=== PATIENT | female | born 1975 | race Caucasian/White ===

== ENCOUNTER 2017-11-09 10:33 | Emergency (ER) | payer SELFPAY | END 2017-11-09 11:45 | disposition left against medical advice (07) | LOC: ERS 10:33 | DX: Z53.21 Procedure and treatment not carried out due to patient leaving prior to being seen by health care provider (principal) ==

== ENCOUNTER 2018-06-02 21:16 | Emergency (ER) | payer SELFPAY | END 2018-06-02 21:56 | disposition left against medical advice (07) | LOC: ERS 21:16 | DX: Z53.21 Procedure and treatment not carried out due to patient leaving prior to being seen by health care provider (principal) ==

== ENCOUNTER 2018-06-02 22:16 | Emergency (ER) | payer SELFPAY | END 2018-06-02 23:20 | disposition home or self-care (01) | LOC: SCSER 22:16 | DX: J45.901 Unspecified asthma with (acute) exacerbation (principal); F17.210 Nicotine dependence, cigarettes, uncomplicated; Z71.6 Tobacco abuse counseling; Z79.899 Other long term (current) drug therapy | CPT/HCPCS: 99406; J7620 ==

== ENCOUNTER 2018-06-30 18:31 | Emergency (ER) | payer SELFPAY | END 2018-06-30 19:21 | disposition home or self-care (01) | LOC: SCSER 18:31 | DX: L02.01 Cutaneous abscess of face (principal); J45.909 Unspecified asthma, uncomplicated; F17.210 Nicotine dependence, cigarettes, uncomplicated; Z79.899 Other long term (current) drug therapy | CPT/HCPCS: 10060; 99406 ==

== ENCOUNTER 2019-02-05 23:29 | Emergency (ER) | payer OTHER, SELFPAY ==
--- NOTE | 2019-02-06 00:15 | RAD ---
RADIOGRAPH CHEST 2 VIEWS: DATE: 02/05/2019 HISTORY: 43-year-old female with cough and left-sided chest pain FINDINGS: There is no airspace density, pulmonary edema, pleural effusion, pneumothorax, or cardiomegaly. Diffu sely prominent interstitial markings. IMPRESSION: No definite acute cardiopulmonary findings.
== END 2019-02-06 00:15 | disposition home or self-care (01) ==
LOC: SCSER 23:29
DX: R07.89 Other chest pain (principal); F17.210 Nicotine dependence, cigarettes, uncomplicated; F41.9 Anxiety disorder, unspecified; E66.9 Obesity, unspecified; Z79.51 Long term (current) use of inhaled steroids
CPT/HCPCS: 71046; 93005

== ENCOUNTER 2019-03-13 18:48 | Emergency (ER) | payer OTHER ==
[2019-03-13] MEDS ORDERED: Dexamethasone 10 MG/ML VIAL ONE ×2 (19:31→19:32)
== END 2019-03-13 19:45 | disposition home or self-care (01) ==
LOC: SCSER 18:48
DX: J44.1 Chronic obstructive pulmonary disease with (acute) exacerbation (principal); F41.9 Anxiety disorder, unspecified; F17.210 Nicotine dependence, cigarettes, uncomplicated; Z79.51 Long term (current) use of inhaled steroids
CPT/HCPCS: 94640; 94760; J1100; J7620

== ENCOUNTER 2019-12-15 10:52 | Inpatient (IN) | payer OTHER, SELFPAY ==
[~2019-12-15 10:52] MED LIST: Rocuronium Bromide 10 MG/ML (10ML VIAL) ONE
[2019-12-15] MEDS ORDERED: cefTRIAXone\\ROCEPHIN 2 GM VIAL ONE (11:52)
[2019-12-15] MEDS ORDERED: Dexamethasone 10 MG/ML VIAL ONE (11:52)
[2019-12-15 12:05] LABS: ALT (SGPT) 52 U/L (8-55); AST (SGOT) 125 U/L (5-34); Albumin 1.5 g/dL (3.5-5.0); Alkaline Phosphatase 142 U/L (40-110); Anion Gap 23 mmol/L (10-20); BUN (Urea Nitrogen) 28 mg/dL (7.0-18.7); Calc. Creatinine Clearance 0 mL/min (70-130); Carbon Dioxide 11 mmol/L (22-29); Chloride 104 mmol/L (98-107); Estimated GFR-MDRD 61; Globulin 5.8 g/dL (2.4-3.5); Potassium 3.6 mmol/L (3.5-5.1); Protein, Total 7.3 g/dL (6.0-8.3); Sodium 134 mmol/L (136-145)
[2019-12-15 12:10] LABS: Glucose 33 mg/dL (70-105)
[2019-12-15 12:11] LABS: Band 42 % (5-11); Bite Cells SLIGHT = 2-5 cells (100X) (0-1/hpf); Burr Cells MODERATE= 6-15 cells (100X) (0-1/hpf); Hemoglobin 9.5 g/dL (12.0-16.0); Lymphocytes 6 % (21-51); MDiff Complete? YES; Mean Corpuscular HGB CONC 30.3 g/dL (32.0-36.0); Mean Corpuscular Hemoglobin 33.4 pg (27.0-31.0); Mean Platelet Volume 10.8 fL (7.4-10.4); Metamyelocyte 2 % (0-0); Monocytes 5 % (0-10); Neutrophil 45 % (42-75); Platelet Count 78 thou/uL (130-400); Platelet Morphology Comment Appears Decreased; RBC Distribution Width 18.8 % (11.5-14.5); Red Blood Cell (RBC) Count 2.85 mill/uL (4.20-5.40); Reflex for Review?? YES; Rouleaux Formation SLIGHT = 1-5 cells (100X) (None Seen); Schistocytes SLIGHT = 2-5 cells (100X) (0-1/hpf); White Blood Cell (WBC) Count 14.4 thou/uL (4.8-10.8)
[2019-12-15 12:18] LABS: Bilirubin 1+ (Negative); Blood, Urine 2+ (Negative); Clarity Turbid (Clear); Glucose, Urine (Dipstick) Normal (Negative); Leukocyte 25 Leu/uL (Negative); Nitrite Negative (Negative); Protein, Urine (Dipstick) 30 mg/dL (Neg-Trace); RBC/HPF 21-50 HPF (0-3); Squamous Epithelial 0-3 HPF (0-3)
[2019-12-15 12:29] LABS: Bacteria/HPF 2+ HPF (None Seen)
--- NOTE | 2019-12-15 13:28 | RAD ---
Chest AP view INDICATION: History of lethargy and dehydration COMPARISON: February 05, 2019 FINDINGS: Lungs: The lungs are clear Cardiac silhouette: Stable mild cardiomegaly Pulmonary vasculature: Normal Pleural spaces: No pleural effusion or pneumothorax is demonstrated. Upper abdomen: No abnormality seen. Osseous structures: No acute osseous abnormality. Additional findings: None. IMPRESSION: No acute cardiopulmonary abnormality.
[2019-12-15 13:58] LABS: INR-International Normal Ratio 3.1; Prothrombin Time 31.9 SEC (12.0-14.7)
[2019-12-15 13:59] LABS: PTT 72.8 SEC (22.9-36.1)
[2019-12-15 14:00] LABS: Hemoglobin 8.1 g/dL (12.0-16.0); Mean Corpuscular HGB CONC 30.4 g/dL (32.0-36.0); Mean Corpuscular Hemoglobin 33.6 pg (27.0-31.0); Mean Platelet Volume 11.9 fL (7.4-10.4); Platelet Count 63 thou/uL (130-400); RBC Distribution Width 18.5 % (11.5-14.5); Red Blood Cell (RBC) Count 2.42 mill/uL (4.20-5.40); White Blood Cell (WBC) Count 9.9 thou/uL (4.8-10.8)
--- NOTE | 2019-12-15 14:41 | RAD ---
XR Shoulder Rt 3 View STANDARD HISTORY: Right shoulder pain FINDINGS: No fracture, dislocation or bony destruction is identified. Minimal degenerative changes are seen in the acromioclavicular joint.
[2019-12-15] MEDS ORDERED: CCU Electrolyte Replacement 1 EACH IVPB ONE (14:45)
[2019-12-15] MEDS ORDERED: Potassium Phosphate 15 MMOL in Sodium Chloride 0.9% 250 ML 250 ML IV PRN (14:51)
[2019-12-15] MEDS ORDERED: Potassium Phosphate 9 MMOL in Sodium Chloride 0.9% 100 ML IVPB PRN (14:51)
[2019-12-15] MEDS ORDERED: CCU ELECTROLYTE REPLACEMENT PROTOCOL FS PRN (14:51)
[2019-12-15] MEDS ORDERED: Potassium Chloride 40 MEQ in Premix Bag 1 BAG IVPB PRN (14:51)
[2019-12-15] MEDS ORDERED: Magnesium 2 GM/50 ML 2 GM in Premix Bag 1 BAG IVPB PRN (14:51)
[2019-12-15] MEDS ORDERED: Potassium Phosphate 12 MMOL in Sodium Chloride 0.9% 250 ML 250 ML IV PRN (14:51)
[2019-12-15] MEDS ORDERED: PHOS-NAK 1 PKT PACK PO PRN ×2 (14:51)
[2019-12-15] MEDS ORDERED: Potassium Chloride 40 MEQ in Sodium Chloride 0.9% 250 ML 250 ML IVPB PRN (14:51)
[2019-12-15] MEDS ORDERED: Potassium Chloride 20 MEQ TAB PO PRN (14:51)
[2019-12-15] MEDS ORDERED: Magnesium Oxide 400 MG TAB PO PRN ×2 (14:51)
[2019-12-15 14:53] LABS: Anisocytosis SLIGHT = 6-15 cells (100X) (0-5/hpf); Band 29 % (5-11); Burr Cells SLIGHT = 2-5 cells (100X) (0-1/hpf); Lymphocytes 5 % (21-51); MDiff Complete? YES; Macrocytosis SLIGHT = 6-15 cells (100X) (0-5/hpf); Metamyelocyte 1 % (0-0); Monocytes 2 % (0-10); Myelocyte 2 % (0-0); Neutrophil 61 % (42-75); Nucleated RBC 1 % (0); Ovalocytes SLIGHT = 2-5 cells (100X) (0-1/hpf); Platelet Morphology Comment Appears Decreased; Polychromasia SLIGHT = 2-3 cells (100X) (0-2/hpf); Rouleaux Formation SLIGHT = 1-5 cells (100X) (None Seen); Schistocytes SLIGHT = 2-5 cells (100X) (0-1/hpf); Toxic Granulation SLIGHT; Vacuoles SLIGHT
[2019-12-15] MEDS ORDERED: Iopamidol-370 76% 500 ML 1 ML ONE (14:55)
[2019-12-15] MEDS ORDERED: Dextrose 5% in Water 1,000 ML IV PRN (15:04)
[2019-12-15 15:15] LABS: Analyzer IN Cardio ER; Base Excess (BEa) -11.3 mEq/L (-2.0 to +3.0); Calcium, Ionized 1.12 mmol/L (1.12-1.30); Carboxyhemoglobin (COHb) 0.6 gm% (0.0-3.0); Hemoglobin (Hb) 9.4 g/dL (12.0-16.0); O2 Tension (PaO2) 76.9 mmHg (80.0-100.0); Potassium - ABG Lab 3.59 mmol/L (3.70-5.30); pH, Arterial 7.34 (7.35-7.45)
[2019-12-15] MEDS ORDERED: DEXTROSE 5% IV SCH (15:15)
[2019-12-15] MEDS ORDERED: WATER IV SCH (15:15)
[2019-12-15] MEDS ORDERED: Sodium Chloride 0.45% 1,000 ML IV SCH (15:15)
[2019-12-15] MEDS ORDERED: ACETYLCYSTEINE IV SCH (15:15)
[2019-12-15 15:16] LABS: CO2 Tension 24.4 mmHg (35.0-45.0); Puncture Site RRA
[2019-12-15 15:35] LABS: Lactic Acid 12.4 mmol/L (0.5-2.2)
[2019-12-15 15:41] LABS: Acetaminophen Less than 6.0 mcg/mL (10.0-30.0); Alcohol Less than 10 mg/dL (Less than 10); Salicylate Less than 8.0 mg/dL (15.0-30.0)
[2019-12-15 15:55] LABS: Vitamin B12 1840 pg/mL (211-911)
[2019-12-15 16:02] LABS: HBSAg Index 0.26 S/CO (0-0.99); Hep A IgM AB Non-Reactive (NonReactive); Hep A IgM S/CO 0.15 S/CO (0-0.79); Hep B Surf Ag Non-Reactive S/CO (NonReactive); Hep C IgG Ab Non-Reactive (NonReactive); Hep C Index 0.17 S/CO (0-0.79); Hepatitis B Core IgM Abs Non-Reactive (NonReactive)
--- NOTE | 2019-12-15 16:06 | CT ---
CT ABDOMEN AND PELVIS WITH IV CONTRAST: Date: 12/15/2019 HISTORY: Dehydration, UTI, ascites. FINDINGS: There are no previous exams for comparison. The lung bases are unremarkable. The patient is post cholecystectomy. There is a moderate amount of f ree fluid in the abdomen and pelvis consistent with ascites. The spleen is enlarged, measuring 16.6 c m. No enhancing hepatic mass or abnormal biliary ductal dilatation is seen. The pancreas, adrenal gla nds, and left kidney are normal. There is a tiny, nonobstructing calculus in the superior pole of the right kidney. No free air or lymphadenopathy is seen. The small bowel loops are not abnormally dilated. A normal ap pearing appendix is seen. There is sigmoid diverticulosis. Vascular calcifications are present withou t evidence of aneurysmal dilatation of the abdominal aorta. There are degenerative changes in the spi ne. There is a 13.0 mm cyst in the upper aspect of the right kidney. No portosplenic thrombosis is seen. There are varices in the left hemiabdomen. Uterus and ovaries are present with a 2.6 cm right ovarian cyst. There is mild irregularity to the surface of the liver consistent with cirrhosis. IMPRESSION: 1. Cirrhosis of the liver. 2. Splenomegaly. 3. Ascites. 4. Portal hypertension. 5. Sigmoid diverticulosis. 6. Nonobstructing tiny right renal calculus. 7. 13.0 mm right renal cyst. POS: [facility]
[2019-12-15] MEDS ORDERED: Sodium Bicarbonate 150 MEQ in Dextrose 5% in Water 1,000 ML IV SCH (16:45)
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
[2019-12-15] MEDS ORDERED: ALPRAZolam 0.25 MG TAB PO PRN (17:26)
[2019-12-15] MEDS: Piperacillin/Tazobactam 3.375 GM in Sodium Chloride 0.9% 100 ML IVPB SCH ×2 (17:51→20:28)
[2019-12-15] MEDS: Albumin 25% 25 GM/100 ML BOT IVPB SCH (17:55)
[2019-12-15] MEDS: Morphine 2 MG/ML SYRINGE SLOW IVP PRN (17:55)
[2019-12-15] MEDS ORDERED: Ondansetron PF 4 MG/2 ML Vial IVP PRN (18:17)
[2019-12-15] MEDS ORDERED: diphenhydrAMINE 50 MG/ML VIAL IVP PRN (18:17)
[2019-12-15] MEDS ORDERED: diphenhydrAMINE 25 MG CAP PO PRN (18:17)
[2019-12-15] MEDS ORDERED: Ondansetron ODT 4 MG TAB PO PRN (18:17)
[2019-12-15] MEDS ORDERED: Bacteriostatic Water 30 ML VIAL FS PRN (18:21)
[2019-12-15] MEDS ORDERED: methylPREDNISolone Sod Succ/PF 125 MG/2 ML VIAL IVP SCH (18:30)
[2019-12-15] MEDS ORDERED: Acetylcysteine 20% (200mg/mL) 3,800 MG in Dextrose 5% in Water 500 ML IVPB SCH (18:30)
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
[2019-12-15 21:55] LABS: Actual Bicarbonate (HCO3a) 18.1 mEq/L (22-28); Base Excess (BEa) -6.9 mEq/L (-2.0 to +3.0); CO2 Tension 33.8 mmHg (35.0-45.0); Calcium, Ionized 1.13 mmol/L (1.12-1.30); Carboxyhemoglobin (COHb) 1.9 gm% (0.0-3.0); Hemoglobin (Hb) 8.7 g/dL (12.0-16.0); Potassium - ABG Lab 3.64 mmol/L (3.70-5.30); pH, Arterial 7.35 (7.35-7.45)
[2019-12-15] MEDS ORDERED: Sodium Bicarb 50 MEQ/50 ML VIAL IVP SCH (22:15)
[2019-12-15] MEDS ORDERED: Furosemide 40 MG/4 ML VIAL SLOW IVP SCH (22:15)
[2019-12-15] MEDS ORDERED: Acetylcysteine 20% (200mg/mL) 7,600 MG in Dextrose 5% in Water 1,000 ML IV SCH (23:00)
[2019-12-16] MEDS: Albumin 25% 25 GM/100 ML BOT IVPB SCH ×4 (00:02→18:45)
[2019-12-16 00:46] LABS: O2 Tension (PaO2) 48.6 mmHg (80.0-100.0)
[2019-12-16 00:47] LABS: Puncture Site LRA
[2019-12-16 01:04] LABS: Prothrombin Time 39.6 SEC (12.0-14.7)
[2019-12-16 01:06] LABS: Amphetamine Not Detected (NotDetected); Barbiturates Screen Not Detected (NotDetected); Benzodiazepine Screen Not Detected (NotDetected); Cocaine Metabolite Screen Not Detected (NotDetected); Medtox Control Line Valid? VALID (VALID); Medtox Reader # READER 1; Methadone Not Detected (NotDetected); Methamphetamine Not Detected (NotDetected); Opiate Screen Not Detected (NotDetected); Oxycodone Screen Not Detected (NotDetected); Phencyclidine (PCP) Not Detected (NotDetected); THC/Cannabinoid Screen Not Detected (NotDetected); Tricyclic Screen Not Detected (NotDetected)
[2019-12-16 01:08] LABS: Band 30 % (5-11); Lymphocytes 11 % (21-51); MDiff Complete? YES; Mean Corpuscular HGB CONC 31.3 g/dL (32.0-36.0); Mean Corpuscular Hemoglobin 34.2 pg (27.0-31.0); Mean Platelet Volume 11.5 fL (7.4-10.4); Metamyelocyte 2 % (0-0); Monocytes 2 % (0-10); Neutrophil 55 % (42-75); Platelet Count 80 thou/uL (130-400); Platelet Morphology Comment Appears Decreased; RBC Distribution Width 19.1 % (11.5-14.5); Red Blood Cell (RBC) Count 2.63 mill/uL (4.20-5.40)
[2019-12-16 01:09] LABS: INR-International Normal Ratio 4.1
[2019-12-16 01:10] LABS: Lactic Acid 7.8 mmol/L (0.5-2.2)
[2019-12-16 01:34] LABS: ALT (SGPT) 46 U/L (8-55); AST (SGOT) 121 U/L (5-34); Albumin 1.8 g/dL (3.5-5.0); Alkaline Phosphatase 89 U/L (40-110); Anion Gap 19 mmol/L (10-20); BUN (Urea Nitrogen) 27 mg/dL (7.0-18.7); Bilirubin, Total 5.7 mg/dL (0.2-1.2); Calc. Creatinine Clearance 111 mL/min (70-130); Calcium 7.9 mg/dL (7.8-10.44); Carbon Dioxide 17 mmol/L (22-29); Chloride 101 mmol/L (98-107); Estimated GFR-MDRD 70; Globulin 4.9 g/dL (2.4-3.5); Glucose 100 mg/dL (70-105); Iron 55 ug/dL (50-170); Magnesium 1.7 mg/dL (1.6-2.6); Potassium 3.7 mmol/L (3.5-5.1); Protein, Total 6.7 g/dL (6.0-8.3); Sodium 133 mmol/L (136-145)
[2019-12-16] MEDS: Piperacillin/Tazobactam 3.375 GM in Sodium Chloride 0.9% 100 ML IVPB SCH ×3 (02:34→15:22)
[2019-12-16] MEDS: Morphine 2 MG/ML SYRINGE SLOW IVP PRN (02:34)
--- NOTE | 2019-12-16 02:53 | HP ---
CHIEF COMPLAINT: Right-sided shoulder pain, generalized weakness. HISTORY OF PRESENT ILLNESS: The patient is a 44-year-old female, who presents to the hospital with complaints of right-sided shoulder pain going on since Sunday. The patient initially went to her primary care doctor on Sunday and then followed by a chiropractor the same day. She was prescribed some anti-inflammatories, which did not help her pain. At this time, she went into where she was admitted for pain control. However, the patient stated that she was also diagnosed with the UTI and the patient left against medical advice there since she did not like the care that she was provided. The patient came back to the hospital with complaints of worsening right-sided shoulder pain and generalized weakness. The patient states that for the past three weeks, she has been taking 15 mL of Tylenol twice a day for her left hip pain. She states that she has a history of sciatica and has been having pain on her left hip area. Since Sunday, she has been on some prednisone, a little bit of naproxen, and also on promethazine for a little bit of nausea. She denies any abdominal pain, any diarrhea. She states that she has been drinking enough fluids. She denies any fevers or chills. She denies any sick contacts. PAST MEDICAL HISTORY: She has a history of asthma, only uses an inhaler. ALLERGIES: SHE HAS ALLERGIES TO CODEINE AND NSAIDS AND SULFAMETHOXAZOLE AND TRIMETHOPRIM. MEDICATIONS: Only ProAir as needed. PAST SURGICAL HISTORY: She has had a tubal ligation, a cholecystectomy, and a . FAMILY HISTORY: Her mother had polio. Her father in a work related accident. SOCIAL HISTORY: She smokes about half a pack a day. Denies any alcohol use or drug use. She is a full code. REVIEW OF SYSTEMS: All negative except for the ones mentioned above in the HPI. PHYSICAL EXAMINATION: VITAL SIGNS: At this time, temperature of 98.8, blood pressure 123/74, oxygen saturation 97% on 2 L, and heart rate is 129. GENERAL: She is awake, alert, and oriented x3. Appears ill. HEENT: She has poor dentition. She has some erythema around her left upper molar. CV: S1 and S2. She is tachycardic. LUNGS: Mild rhonchi heard all over. ABDOMEN: Soft. Bowel sounds are present x2. She has no pain upon palpation. EXTREMITIES: She has 1 to 2+ lower extremity edema. Pedal pulses are present x2. NEUROVASCULAR: No focal deficits noted. SKIN: No cuts, lesions, or bruises noted. LABORATORY RESULTS: As of the following; WBCs of 14.4, hemoglobin of 9.5, hematocrit of 31.4, platelets of 78. Her bands were 42. Chemistry; sodium of 134, potassium of 3.6, BUN of 28, creatinine 0.9. Her glucose was 33. Her lactic acid was 16. Her LDH was 403. Her bilirubin was 6. Her AST was 125. Her alkaline phosphatase was 142. Her INR was 3.1. Her PT was 31 and PTT was 72.8. She did have a CT of abdomen and pelvis and a shoulder x-ray. The CT of abdomen and pelvis indicated cirrhosis of the liver, splenomegaly, ascites, portal hypertension, sigmoid diverticulosis, and nonobstructing tiny right renal calculi. She also had a shoulder x-ray, which indicated no fracture, dislocations, just degenerative changes. ASSESSMENT AND PLAN: The patient is a very pleasant 44-year-old female, who presents to the hospital with complaints of generalized weakness and right shoulder pain. 1. Acute liver failure, unknown etiology at this time. We will check liver hepatitis profile. We will check autoimmune profile. We will also consult GI. She has been taking Tylenol. We will check Tylenol levels and also put her on N-acetylcysteine protocol. We will start her on some gentle hydration and continue to monitor her. 2. Gram-positive bacteremia. We received cultures. Both blood cultures were positive for gram positive bacteremia. We will put her on broad-spectrum antibiotics. We will continue to monitor. 3. Lactic acidosis, most likely secondary to possible sepsis versus liver failure. 4. Thrombocytopenia, again is most likely secondary to her liver failure. We will continue to monitor. 5. Anemia. Again, this could be most likely secondary to underlying liver failure. We will check a stool for occult blood for her. 6. Hypoglycemia. This is most likely secondary to possible liver failure. The patient has been eating but not as much per the family. 7. Deep venous thrombosis prophylaxis. We will put the patient on some SCDs. Job ID: [id number]
[2019-12-16] MEDS ORDERED: Magnesium 2 GM/50 ML 2 GM in Premix Bag 1 BAG IVPB SCH (03:30)
[2019-12-16] MEDS: Vancomycin HCl 1.25 GM in Sodium Chloride 0.9% 250 ML 250 ML IVPB SCH ×2 (04:23→16:28)
[2019-12-16 04:32] LABS: Actual Bicarbonate (HCO3a) 21.2 mEq/L (22-28); Base Excess (BEa) -6.3 mEq/L (-2.0 to +3.0); CO2 Tension 51.2 mmHg (35.0-45.0); Calcium, Ionized 1.15 mmol/L (1.12-1.30); Carboxyhemoglobin (COHb) 1.3 gm% (0.0-3.0); Hemoglobin (Hb) 10.3 g/dL (12.0-16.0); Potassium - ABG Lab 3.78 mmol/L (3.70-5.30)
[2019-12-16 04:35] LABS: Iron Binding Capacity, Total 38 mcg/dL (265-497)
[2019-12-16] MEDS ORDERED: Propofol 1,000 MG/100 ML VIAL IV ONE (04:42)
[2019-12-16] MEDS ORDERED: Midazolam HCl 2 mg/2 ml Vial ONE (04:55)
[2019-12-16] MEDS ORDERED: Rocuronium Bromide 10 MG/ML (10ML VIAL) IVP SCH (05:00)
[2019-12-16] MEDS ORDERED: Vecuronium 10 MG VIAL ONE (05:00)
[2019-12-16] MEDS ORDERED: Sodium Bicarb 50 MEQ/50 ML VIAL ONE ×3 (05:27→08:00)
[2019-12-16] MEDS ORDERED: EPINEPHrine 4 MG in Dextrose 5% in Water 250 ML IV SCH (05:30)
[2019-12-16 05:44] LABS: Actual Bicarbonate (HCO3a) 26.3 mEq/L (22-28); CO2 Tension 59.6 mmHg (35.0-45.0); Calcium, Ionized 1.03 mmol/L (1.12-1.30); Carboxyhemoglobin (COHb) 1.9 gm% (0.0-3.0); Hemoglobin (Hb) 7.8 g/dL (12.0-16.0); Potassium - ABG Lab 3.34 mmol/L (3.70-5.30); pH, Arterial 7.26 (7.35-7.45)
[2019-12-16] MEDS ORDERED: Vecuronium 10 MG VIAL IV PRN (05:50)
[2019-12-16] MEDS ORDERED: Ventilator Sedation Protocol 1 EACH FS ONE (05:50)
[2019-12-16] MEDS ORDERED: Sodium Bicarb 50 MEQ/50 ML VIAL IVP SCH ×2 (05:50→08:00)
[2019-12-16 05:51] LABS: Puncture Site LRA; pH, Arterial 7.23 (7.35-7.45)
[2019-12-16 05:52] LABS: O2 Tension (PaO2) 52.8 mmHg (80.0-100.0)
[2019-12-16 05:53] LABS: Puncture Site LRA
[2019-12-16] MEDS ORDERED: Propofol BOLUS 1,000 MG/100 ML VIAL IV PRN (06:02)
[2019-12-16] MEDS ORDERED: Propofol 1,000 MG/100 ML VIAL IV PRN (06:02)
[2019-12-16] MEDS ORDERED: Fentanyl BOLUS 250 ML IVPB PRN (06:02)
[2019-12-16] MEDS ORDERED: DISCONTINUE PREVIOUS NARCOTIC PAIN MEDICATIONS AND BENZODIAZEPINES FS SCH (06:02)
[2019-12-16] MEDS ORDERED: Lorazepam 2 MG/ML VIAL SLOW IVP PRN (06:02)
[2019-12-16] MEDS ORDERED: Morphine 2 MG/ML SYRINGE SLOW IVP PRN ×2 (06:02→18:58)
[2019-12-16] MEDS ORDERED: fentaNYL Citrate/PF 2,000 MCG in Sodium Chloride 0.9% 60 ML IV SCH (06:02)
[2019-12-16] MEDS ORDERED: Norepinephrine 8 MG/0.9% NS 0 ML ONE (06:18)
[2019-12-16] MEDS ORDERED: Rocuronium Bromide 50 MG/5 ML VIAL IVP SCH (06:30)
[2019-12-16 06:37] LABS: Base Excess (BEa) -2.3 mEq/L (-2.0 to +3.0); CO2 Tension 57.2 mmHg (35.0-45.0); Calcium, Ionized 1.02 mmol/L (1.12-1.30); Carboxyhemoglobin (COHb) 1.8 gm% (0.0-3.0); Hemoglobin (Hb) 8.6 g/dL (12.0-16.0); Potassium - ABG Lab 3.37 mmol/L (3.70-5.30); pH, Arterial 7.26 (7.35-7.45)
[2019-12-16 06:44] LABS: O2 Tension (PaO2) 47.8 mmHg (80.0-100.0)
[2019-12-16 06:46] LABS: Puncture Site LBA
--- NOTE | 2019-12-16 07:48 | RAD ---
CHEST 1 VIEW PORTABLE: HISTORY: Intubation, respiratory insufficiency, NG tube placement. FINDINGS: NG tube and endotracheal tubes have been placed in satisfactory location. There are extensive bilate ral interstitial and confluent alveolar opacities changes noted bilaterally throughout both lungs dev eloping since the prior 12/15/2019 study. Heart size is within normal limits. Slight costophrenic ang le blunting. IMPRESSION: Very severe confluent alveolar and interstitial opacity changes throughout both lungs developing sinc e the prior study. Tubes in place. Continue short-term followup. POS: [facility]
[2019-12-16] MEDS ORDERED: Sodium Chloride 0.9% (PF) 10 ML VIAL FS PRN (07:50)
[2019-12-16 07:52] LABS: Actual Bicarbonate (HCO3a) 21.1 mEq/L (22-28); Base Excess (BEa) -6.3 mEq/L (-2.0 to +3.0); CO2 Tension 51.6 mmHg (35.0-45.0); Calcium, Ionized 1.02 mmol/L (1.12-1.30); Carboxyhemoglobin (COHb) 1.6 gm% (0.0-3.0); Hemoglobin (Hb) 9.7 g/dL (12.0-16.0)
[2019-12-16 07:54] LABS: O2 Tension (PaO2) 46.3 mmHg (80.0-100.0); Puncture Site LBA; pH, Arterial 7.23 (7.35-7.45)
--- NOTE | 2019-12-16 08:59 | PRG ---
DATE OF SERVICE: 12/16/2019 TIME: From 4:30 to 6 a.m. (90 minutes), and then from 7 to 7:30, additional 30 minutes. SUBJECTIVE: Ms. Brandt is a 44-year-old female, who was admitted last night with sepsis and liver failure. As the night progressed, she became more hypoxemic. She was placed on BiPAP and given diuretics with no improvement. At 4:30, I elected to intubate her. This was done successfully and quickly. At approximately 10 minutes to 5, she was noted to have pulseless electrical activity. She had brief chest compressions, responded to hyperventilation and epinephrine as well as a volume infusion. She is now on an epinephrine drip. She has had chemically paralyzed. She is unresponsive when I intubated her. OBJECTIVE: LUNGS: Remarkable for coarse breath sounds. HEART: Regular rhythm. ABDOMEN: Distended. EXTREMITIES: Without asymmetry nor a gastric tube was placed. She has blood in her orogastric tube. LABORATORY DATA AND IMAGING STUDIES: White count 16, hemoglobin 9, platelets 80. BUN 27, creatinine 0.87. PH of 7.23, CO2 of 51, pO2 of 46. Immediately prior to intubation, she was 7.23, CO2 of 51, pO2 of 51. Post-intubation and post-code, she is 7.26, CO2 of 59, and pO2 of 52. Her peak airway pressure is close to 50 with a plateau of 40 to give her a tidal volume of 450. On , bilevel ventilation, her exhaled tidal volumes were only 360 mL. Chest radiograph shows diffuse alveolar infiltrates. ASSESSMENT AND PLAN: I met with the and met with the son or both. The son is an adult. There are also small children involved. I explained that she very likely will not survive this. I have explained that another round of chest compressions will add little given that she is being supported with bicarb boluses and an epinephrine drip. They will have a discussion, but they are willing to consider do not resuscitate orders. We will continue our current aggressive care, but she continues to spiral downward. Her chances of survival are close to zero. I explained to the family that the acute liver transplantation is not an option. Critical care time is 90 minutes as documented above and then an additional 30 minutes this morning. This is independent of the intubation fiberoptically. Job ID: [id number]
[2019-12-16] MEDS ORDERED: Phytonadione 10 MG/ML AMP PO SCH (09:00)
[2019-12-16] MEDS ORDERED: FLU VACC QS2019-20(6MOS UP)/PF 60 MCG/0.5 ML SYRINGE IM ONE (09:00)
[2019-12-16] MEDS ORDERED: Pantoprazole 40 MG VIAL IVP SCH (09:00)
--- NOTE | 2019-12-16 09:29 | PDOC.PALCO ---
Palliative Care Consult - Consult Details Requesting Physician: Dr Packer Reason for Consult: goals of care, advance directives assistance, family support Family Members Present: Patient three Children - Pertinent HPI 44 year old female who present to the emergency room with complaints of right sided shoulder pain, onset 12/12/2019. Initially seen by primary care physician and chiropractor with no relief. Review of records state she also went to another emergency room where she was diagnosed with a UTI but left AMA secondary to not satisfied with care. Pain to right shoulder increased and she present to the emergency room at [facility]. On presentation to the emergency room she was able to provide history. Evaluation identified acute liver failure , gram positive bacteremia, anemia, thrombocytopenia and was admitted for higher level of care to CCU. Decline and required intubation for maintenance of airway. - Pertinent PMH Asthma - Social History Smoking Status: Current every day smoker Smoking: less than 1 pack/day Alcohol Use: none Drug Use History: none Living Situation: - Medications MAR Reviewed: Yes - Allergies Allergies/Adverse Reactions: Allergies Allergy/AdvReac Type Severity Reaction Status Date / Time codeine Allergy Verified 12/15/19 19:33 NSAIDS (Non-Steroidal Allergy Verified 12/15/19 19:33 Anti-Inflamma sulfamethoxazole Allergy Verified 12/15/19 19:33 [From Bactrim] trimethoprim [From Bactrim] Allergy Verified 12/15/19 19:33 - Subjective Intubated, encephalopathic - ROS Non Response: due to endotracheal tube, due to mental status - Objective Vital Signs: Vital Signs - Most Recent Temp Pulse Resp BP Pulse Ox 98.0 F 137 H 30 H 114/52 L 71 L 12/16/19 04:00 12/16/19 06:58 12/16/19 08:00 12/16/19 06:58 12/16/19 06:49 Palliative Performance Scale: 10 - Physical Exam Constitutional: encephalitic, ill appearing HEENT: moist MMs, scleral icterus Deviation from normal: mechanical ventilation Deviation from normal: tachycardia Deviation from normal: distended Genitourinary: guillen catheter Musculoskeletal: edema present Neurology: no focal deficits Skin: bruising Deviation from normal: icteric Deviation from normal: encephalopathic - Problem List (1) Palliative care encounter Code(s): Z51.5 - ENCOUNTER FOR PALLIATIVE CARE Status: Acute (2) Respiratory failure requiring intubation Code(s): J96.90 - RESPIRATORY FAILURE, UNSP, UNSP W HYPOXIA OR HYPERCAPNIA Status: Acute (3) Liver failure Status: Acute (4) Acute encephalopathy Code(s): G93.40 - ENCEPHALOPATHY, UNSPECIFIED Status: Acute - Plan/Recommendations Plan: Dr Packer and Shantel Corrales RNmulcher operator met with family to discuss multiple morbidities and poor chance of meaningful recovery given acute health crisis. Continued family support offered to children Juan David, and the 15 year old daughter. There is also an 11 year old son that is present in the lobby. Will continue to support family through therapeutic listening, emotional support, and establish goals of care as needed. [50] minutes spent on this encounter with >50% of the time in counseling and coordination of care. Thank you for this very appropriate consult.
[2019-12-16 09:41] LABS: Lactic Acid 15.6 mmol/L (0.5-2.2)
--- NOTE | 2019-12-16 12:05 | OP ---
DATE OF PROCEDURE: 12/16/2019 PROCEDURE PERFORMED: Fiberoptic intubation. The patient was unresponsive. A bite block was placed in her mouth. She did cooperate for placement of bite block but she was somnolent. Blood pressure is 120 range at this time. Heart rate was 120 to 130. DESCRIPTION OF PROCEDURE: Her upper airway was inspected and noted for bilirubin stained oral secretions. The bronchoscope was passed through her glottis into her trachea easily. Endotracheal tube was secured above the main you. Copious amounts of clear and yellow stained tracheobronchial secretions were seen, no purulent exudates were seen. I suspect that this is all lead to respiratory distress syndrome associated with gram-positive sepsis associated with acute on chronic hepatic decompensation. PROCEDURE PERFORMED: Central line placement. DESCRIPTION OF PROCEDURE: Right groin was prepped with chlorhexidine and Betadine. The right femoral vein was cannulated with an introducer needle followed by a J-wire. The J-wire bent at the tip of the needle and I was unable to advance a vein dilator, so the whole apparatus was withdrawn. A second kit was obtained. Introducer needle was inserted through the same puncture wound into the vein. A wire was passed that time without difficulty. A vein dilator was inserted. Then a triple-lumen catheter was inserted after withdrawal of the introducer and sewn in place x2. Good blood return was obtained from all three ports. Pressors were connected to this catheter. Sterile dressing was applied. A saldana bag compression was applied to this area given the oozing secondary to her coagulopathy. Job ID: [id number]
[2019-12-16] MEDS: Dextrose 50% Abboject 50 ML SYRINGE SLOW IVP PRN ×4 (12:09→18:00)
[2019-12-16 12:25] VITALS: BMI 38.4
--- NOTE | 2019-12-16 12:55 | PRG ---
DATE OF SERVICE: 12/16/2019 SUBJECTIVE: Ms. Brandt had an eventful night. Unfortunately, she developed increasing respiratory distress and had to be intubated early this morning. Following this, she had a short run of pulseless electrical activity and received chest compressions as well as epinephrine. She did regain pulses. Nasogastric tube was passed and is suctioning out to some fresh blood. There has been no report of blood from below. She has remained hypotensive and tachycardic, now on epinephrine as well as bicarb drips. She was made DNR status and Palliative Care consultation was obtained. OBJECTIVE: VITAL SIGNS: Temperature 98.4, pulse 135, blood pressure 75/50, 85% oxygen saturation on ventilator. GENERAL: Critically ill, sedated and intubated. ENT: Orogastric tube suctioning out some fresh blood. HEART: Regular, tachycardia. LUNGS: Bibasilar crackles. ABDOMEN: Mild distention. No withdrawal to palpation. EXTREMITIES: No peripheral edema. LABORATORY STUDIES: Hemoglobin is 9.0, WBC up to 16.0, platelets 80. INR up to 4.1. ABG shows continued acidosis worsening with pH of 7.23, pO2 only 46.3, pCO2 is 51.6. Sodium 133, potassium 3.7, BUN 27, creatinine 0.87, glucose 90. Lactic acid went down to 7.8, but increased back to 15.6. Calcium 7.9. Ferritin elevated, iron 55, TIBC 38. Total bilirubin is stable at 5.7, alkaline phosphatase 89, AST 121, ALT 46. Ammonia up 76, albumin 1.8. Urine toxicology screen is all negative. Viral hepatitis serologies are all nonreactive. Awaiting EDGARDO, ASMA, AMA, as well as ceruloplasmin. IMAGING STUDIES: Chest x-ray this morning shows diffuse severe confluent alveolar and interstitial opacities, all new since her initial imaging yesterday. Microbiology; her urine culture preliminary report shows it is growing out Staph aureus. Recalled that blood cultures from the outside hospital were growing gram-positive cocci. ASSESSMENT/PLAN: 1. Severe sepsis, with persistent hypotension. 2. Bilateral lung infiltrates and hypoxic respiratory failure, likely representing acute respiratory distress syndrome. 3. Pulseless electrical activity, status post code with chest compressions earlier this morning. Agree with Dr. Packer's assessment, prognosis is quite grave considering continued clinical deterioration with maximal supportive care. She is on broad-spectrum antibiotics, epinephrine, and bicarb drips, but with worsening lactic acidosis and continued hypoxia, now evidence of new lung infiltrates. 4. Upper gastrointestinal bleeding, with fresh blood coming from orogastric tube. Hemoglobin is stable. With this degree of coagulopathy, the bleeding we are seeing is not surprising. Continue to monitor H and H and transfuse as needed. Stress ulcer prophylaxis with IV PPI. She is getting 40 mg IV daily. No plan for any endoscopic investigation as this would not likely yield any clinical benefit, and would likely hasten her demise. 5. Cirrhosis, this was previously undiagnosed, but with her presenting thrombocytopenia, hypoalbuminemia, evidence of cirrhotic liver configuration and portal hypertension, on imaging, this has likely been underlying for some time. Etiology is unclear, but obviously with less hepatic reserve, this is contributing to the severity of her presentation. 6. Coagulopathy. This is worsening over the past day with INR up to 4.1. 7. The family has opted for continued aggressive care, though she has been made DNR status. Palliative Care Team continues to follow. I think particularly if we are not seeing clinical improvement over the next 24 hours, consideration of comfort measures would be appropriate. 8. Ascites. Her presenting CT did indeed show some [id number]-[id number] ascites. She is being treated aggressively with IV albumin and antibiotics already. I would not perform any paracentesis in this setting. Job ID: [id number] MTDD
[2019-12-16] MEDS ORDERED: methylPREDNISolone Sod Succ 40 MG VIAL IVP SCH (18:00)
[2019-12-16 18:13] VITALS: BP 70/47
[2019-12-16 19:57] VITALS: TEMP 99.2
--- NOTE | 2019-12-17 12:36 | DIS ---
DATE OF ADMISSION: 12/15/2019 DATE OF DISCHARGE: 12/16/2019 This is a discharge/ summary. Date of is 12/16/2019. SERVICE: Staff physician, hospitalist service. Attending is Rodney Perez MD. CONSULTATIONS: Dr. Packer of Pulmonology, Dr. Amezquita of Gastroenterology, Internal Medicine. PROCEDURES: Central line placement, intubation. HISTORY OF PRESENT ILLNESS: The patient was a 44-year-old female with past medical history of asthma who presented to the hospital with complaints of right-sided shoulder pain since Sunday. She initially went to her primary care doctor and chiropractor, and was prescribed anti-inflammatories, which did not help the pain. She went to [facility] and complained of abdominal discomfort day before admission. She requested Tylenol, but they were hesitant to give her Tylenol because of some kind of liver abnormalities, so she signed out AMA. Her blood cultures came back positive for gram-positive bacteria. She was admitted here after presenting again to our emergency room with the same complaint. She had no history of liver disease, never been a drinker, took Tylenol occasionally, but never more than 2 to 3 times a day. In the last 2 days, she had been taking naproxen for discomfort. On admission, Dr. Packer of ICU Service was consulted. The patient was noted to have an abdominal CT with changes suggestive of cirrhosis and ascites. Her spleen was enlarged. She had diverticulosis. There was a tiny calculous in the right kidney. She had a coagulopathy with an INR of 2.1. Her glucose was low at 133, her lipase was 16 and improved to 12 with initial measures. Her AST was 125, ALT was 52, bilirubin was 6, alkaline phosphatase of 142, albumin was 1.5, and concern for cirrhosis with severe liver dysfunction. She was admitted to the ICU and Gastroenterology was consulted. She was also suspected to have severe sepsis. A liver lab workup was ordered by Gastroenterology, and she was continued on N-acetylcysteine drip given previous Tylenol use although undetectable Tylenol level was noted. Also bicarbonate drip was started. As the night progressed, she became more hypoxemic and was placed on BiPAP and given diuretics with no improvement. At 4:30, she was intubated. This was done successfully by Dr. Packer. At approximately 10 minutes before 5 a.m., she was noted to have pulseless electrical activity. She had brief chest compressions, responded to hyperventilation, epinephrine as well as a volume infusion. She was placed on an epinephrine drip. She was chemically paralyzed. HOSPITAL PROGRESS COURSE: I evaluated the patient on the day of , earlier about 3 p.m. At that time, she was intubated and sedated. Lungs were remarkable for coarse breath sounds. Heart had a regular rhythm. Abdomen was distended. Extremities were without asymmetry, no edema, no cyanosis noted. A gastric tube was placed. There was blood in orogastric tube. Over the course of the day, she continued to deteriorate. Her peak airway pressure was noted close to 50, which plateaued at 50 to give her a tidal volume of 450. Dr. Packer met with the and the son who is an adult. There were also small children involved. He explained that she had sepsis and severe liver dysfunction as well as her respiratory abnormalities. He explained that more chest compressions would add very little given that she was being supported with bicarbonate boluses and basic pressor agents including epinephrine drip. There was a discussion, and after family meeting and evaluation of goals of care with the patient's likely preferences being taken into consideration, aggressive care was continued for some time; however, eventually family determined that a comfort base care approach would be best. Dr. Packer did mention in his opinion, her chance of survival was close to zero. He explained this to the family. In the evening, the patient's family eventually leaned towards comfort base approach and breathing tube was withdrawn, and the patient . DATE OF : 12/16/2019. TIME OF : 1938 hours. Time of called by Lois Bain RN, under my attention, attending MD, Rodney Perez. Notification was made to , rn house supervisor was completed. The patient to be discharged to home. TIME OF EFFORT: Over 55 minutes including counseling and coordination of care. Job ID: [id number]
[2019-12-19 17:10] LABS: ANA Symphony (Qualitative) POSITIVE (Negative); ANA Symphony (Quantitative) Greater than 32.0 Ratio (< 0.7 Negative); EliA Vaculitis New Method **** NEW METHOD ****; Jo-1 IgG Antibody 0.6 EliAU/mL (<7 Negative); Mitochondrial Ab 3.1 U/mL (<4 Negative); SSB/La IgG Antibody 3.4 EliAU/mL (<7 Negative); Scleroderma-70 IgG Antibody 1.8 EliAU/mL (<7 Negative)
--- NOTE | 2020-01-11 09:19 | EKG ---
Test Reason : Blood Pressure : / mmHG Vent. Rate : 137 BPM Atrial Rate : 137 BPM P-R Int : 130 ms QRS Dur : 072 ms QT Int : 312 ms P-R-T Axes : 270 113 024 degrees QTc Int : 471 ms Unusual P axis and short NC, probable junctional tachycardia Right axis deviation Low voltage QRS Cannot rule out Anteroseptal infarct , age undetermined Abnormal ECG No previous ECGs available Confirmed by CARO MEDRANO (2) on 01/11/2020 9:18:33 AM Referred By: MEGHAN Confirmed By:CARO MEDRANO
--- NOTE | 2020-01-21 08:48 | PQF ---
Kelly Brandt MICHAEL, MD [id number] CLINICAL DOCUMENTATION CLARIFICATION FORM: POST DISCHARGE Addendum to original discharge summary date: ____ Late entry note date: __ DATE:01/21/2020 ATTN:CAROLYN MCCOY MD Please exercise your independent, professional judgment in responding to the clarification form. Clinical indicators are provided on the bottom of this form for your review Please check appropriate box(s): [ ] Acute Respiratory Failure: [ ] with Hypoxia[ ] with Hypercapnia [ ] Acute On Chronic Respiratory Failure: [ ] with Hypoxia [ ] with Hypercapnia [ ] Acute Respiratory Failure due to: (etiology) [ ] ARDS (Acute Respiratory Distress Syndrome) [ ] Chronic Respiratory Failure only [ ] with Hypoxia [ ] with Hypercapnia [ ] Hypoxia [ ] Other diagnosis [ ] Unable to determine In addition, please specify: Present on Admission (POA): [ ] Yes [ ] No [ ] Unable to determine For continuity of documentation, please document condition throughout progress notes and discharge summary. Thank You. CLINICAL INDICATORS - SIGNS / SYMPTOMS / LABS I suspected that this all lead to respiratory distress syndrome associated with gram-positive sepsis -Documented in OP note on 12/15 by Matt Packer MD Bilateral lung infiltrates and hypoxic respiratory failure, likely representing acute respiratory distress syndrome-Documented in PN on 12/15 by Case, Leandro ABG shows continued acidosis worsening with PH of 7.23, pO2 only 46.3, pCO2 is 51.6-Documented in PN on 12/15 by Case, Leandro Severe sepsis-Documented in PN on 12/15 by Case, Leandro O2 sat by pulse [id number] in Clinical panels Ventilator respiratory [id number] in Clinical panels RISK FACTORS Severe sepsis-Documented in PN on 12/15 by Case, Leandro TREATMENTS: Fiberoptic intubation -Documented in OP note on 12/15 by Matt Packer MD Oxygen delivery method -Mechanical ventilator -Documented in Clinical panels Ipratropium/albuterol sulfate(Duoneb)-Documented in Medication snapshot [employer] Winform Viewer (This form is maintained as a part of the permanent medical record) 2014 [employer] All Rights Reserved William .tr [phone] RHODA
== END 2019-12-16 19:38 | disposition expired | DRG 871 ==
LOC: ERS 10:52 → CCU 16:27
PROVIDERS: ADMIT Internal Medicine; ATTEND Internal Medicine
PROC: 0BH18EZ Insertion of Endotracheal Airway into Trachea, Via Natural or Artificial Opening Endoscopic (ICD-10-PCS; principal; 2019-12-16)
PROC: 5A1935Z Respiratory Ventilation, Less than 24 Consecutive Hours (ICD-10-PCS; 2019-12-16)
PROC: 02HV33Z Insertion of Infusion Device into Superior Vena Cava, Percutaneous Approach (ICD-10-PCS; 2019-12-16)
PROC: 5A12012 Performance of Cardiac Output, Single, Manual (ICD-10-PCS; 2019-12-16)
PROC: 3E033XZ Introduction of Vasopressor into Peripheral Vein, Percutaneous Approach (ICD-10-PCS; 2019-12-16)
DX: A41.89 Other specified sepsis (principal); K72.00 Acute and subacute hepatic failure without coma; J96.91 Respiratory failure, unspecified with hypoxia; K57.91 Diverticulosis of intestine, part unspecified, without perforation or abscess with bleeding; R18.8 Other ascites; D68.9 Coagulation defect, unspecified; E87.2 Acidosis; N39.0 Urinary tract infection, site not specified; G93.49 Other encephalopathy; K76.6 Portal hypertension; Z66 Do not resuscitate; Z51.5 Encounter for palliative care; E86.0 Dehydration; R65.20 Severe sepsis without septic shock; K74.60 Unspecified cirrhosis of liver; J45.909 Unspecified asthma, uncomplicated; D69.6 Thrombocytopenia, unspecified; D64.9 Anemia, unspecified; E16.2 Hypoglycemia, unspecified; I10 Essential (primary) hypertension; N20.0 Calculus of kidney; I46.8 Cardiac arrest due to other underlying condition; F17.210 Nicotine dependence, cigarettes, uncomplicated; F41.9 Anxiety disorder, unspecified; E66.9 Obesity, unspecified; Z88.5 Allergy status to narcotic agent; Z88.2 Allergy status to sulfonamides; Z88.8 Allergy status to other drugs, medicaments and biological substances; Z98.51 Tubal ligation status; Z90.49 Acquired absence of other specified parts of digestive tract; Z68.38 Body mass index [BMI] 38.0-38.9, adult
CPT/HCPCS: 36415; 36416; 51701; 71045; 74177; 80053; 80074; 80306; 80307; 81003; 81015; 82103; 82104; 82140; 82248; 82390; 82607; 82728; 82805; 83010; 83516; 83540; 83550; 83605; 83615; 83735; 84443; 85007; 85025; 85027; 85060; 85610; 85730; 86038; 86225; 86235; 87040; 87077; 87086; 87186; 87804; 93005; 93010; 94002; 94003; 94640; 94660; 96361; 96365; 96375; A4353; C9113; J0132; J0696; J1100; J1940; J2250; J2270; J2543; J2704; J2930; J3010; J3370; J3475; J3490; J7050; J7070; J7620; P9047; Q9967